=== PATIENT | female | born 1955 | race Caucasian/White ===

== ENCOUNTER → 2023-06-01 16:22 | Outpatient (REF) | payer MEDICARE, OTHER, SELFPAY | LOC: HWRAD 16:22 | PROVIDERS: ATTENDING PHYSICIAN Nurse Practitioner | DX: R11.0 Nausea (principal) | CPT/HCPCS: 74018 ==

== ENCOUNTER → 2023-07-11 10:08 | Outpatient (REF) | payer OTHER, SELFPAY | LOC: HWRAD 10:08 | PROVIDERS: ATTENDING PHYSICIAN Nurse Practitioner | DX: R11.0 Nausea (principal); R53.83 Other fatigue | CPT/HCPCS: 71046 ==